=== PATIENT | female | born 1990 | race Asian ===

== ENCOUNTER 2023-09-19 01:47 | Inpatient (IN) ==
[2023-09-19] MEDS: LACTATED RINGER'S 1,000 ML IV PRN (02:30)
[2023-09-19] MEDS ORDERED: OXYTOCIN 30 UNITS/NSS 30 UNITS/500 ML BAG IV PRN (02:52)
[2023-09-19] MEDS ORDERED: LIDOCAINE 1% LOCAL 20 ML VIAL INFIL PRN (02:52)
[2023-09-19] MEDS ORDERED: CALCIUM CARBONATE 500 MG CHEWABLE TAB PO PRN (02:52)
--- NOTE | 2023-09-19 02:54 | Communication Note ---
Date of Service: September 19, 2023 H and P written as Vidly was down at the time. G1 at 38 weeks, srom, mec. 5/100/-2 toco--q2-3 fetus category one a/p admit for labor, epidural,
[2023-09-19 03:04] LABS: Basophils # (auto) 0.03 K/uL (0.00-0.20); Basophils % (auto) 0.3 %; Eosinophils # (auto) 0.05 K/uL (0.00-0.50); Eosinophils % (auto) 0.4 %; Hematocrit (blood only) 37.3 % (37.0-47.0); Hemoglobin 12.4 g/dl (12.0-16.0); Immature Granulocytes # (auto) 0.08 K/uL (0.01-0.20); Immature Granulocytes % (auto) 0.7 %; Lymphocytes # (auto) 2.09 K/uL (1.20-3.40); Lymphocytes % (auto) 17.8 %; Mean Corpuscular Hemoglobin 28.1 pg (25.0-34.0); Mean Corpuscular Hgb Conc 33.2 g/dL (32.0-36.0); Mean Corpuscular Volume 84.4 fL (80.0-100.0); Mean Platelet Volume 10.1 fL (9.4-12.4); Monocytes # (auto) 0.77 K/uL (0.11-0.59); Monocytes % (auto) 6.6 %; Neutrophils % (auto) 74.2 %; Platelet Count 228 K/uL (130-400); RDW Coefficient of Variation 14.8 % (11.5-14.5); RDW Standard Deviation 45.5 fL (36.4-46.3); Red Blood Count 4.42 M/uL (4.20-5.40); White Blood Count 11.72 K/ul (4.8-10.8)
[2023-09-19] MEDS ORDERED: LIDOCAINE 2% MPF LOCAL 5 ML VIAL EPI PRN (03:25)
[2023-09-19] MEDS ORDERED: ONDANSETRON INJ 2 MG/ML 2 ML VIAL IV PRN (03:25)
[2023-09-19] MEDS ORDERED: ROPIVACAINE 0.5% PF 5 MG/ML 20 ML VIAL EPI PRN (03:25)
[2023-09-19] MEDS ORDERED: diphenhydrAMINE 50 MG/ML VIAL IV PRN (03:25)
[2023-09-19] MEDS ORDERED: NALOXONE HCL 1 MG in SODIUM CHLORIDE 0.9% 1,000 ML IV PRN (03:25)
[2023-09-19] MEDS ORDERED: SODIUM CHLORIDE 0.9% PF INJ 10 ML VIAL EPI PRN (03:25)
[2023-09-19] MEDS ORDERED: NALBUPHINE HCL 5 MG in SYRINGE 0 ML IV PRN (03:25)
[2023-09-19] MEDS ORDERED: fentANYL 2 MCG/ML BUPIVacaine 0.125%-NSS 100ML BAG EPI PRN (03:25)
[2023-09-19] MEDS ORDERED: fentaNYL citrate PF 100 MCG/2 ML VIAL EPI PRN (03:25)
[2023-09-19] MEDS ORDERED: BUPIVACAINE 0.25% PF 30 ML VIAL EPI PRN (03:25)
[2023-09-19] MEDS ORDERED: NALOXONE HCL 0.4 MG/1 ML VIAL/CARP IV PRN (03:25)
[2023-09-19] MEDS ORDERED: ePHEDrine sulfate 50 MG/ML AMP IV PRN (03:25)
--- NOTE | 2023-09-19 03:25 | Anesthesiology Consultation ---
Date of Service September 19, 2023 Assessment & Plan ASA ASA2 Proposed Anesthesia Anesthesia Type: General Risk / Benefits Reviewed With: PT / POA / Parent / Guardian, Accepts Plan and Informed Consent Obtained History Height/Weight Height: 5 ft 2 in Weight: 77.564 kg Allergies Allergy/AdvReac Type Severity Reaction Status Date / Time No Known Allergies Allergy Verified 09/18/23 15:19 Medications Home Medications Medication Instructions Recorded Confirmed Last Taken ferrous sulfate 325 mg (65 mg 325 mg PO DAILY 08/21/23 09/18/23 09/19/23 00:00 iron) tablet (Iron (ferrous sulfate)) vits no.124-ferrous fum 1 tab PO DAILY 08/21/23 09/18/23 09/19/23 00:00 27 mg iron-folic acid 800 mcg tablet ( Vitamin) Active Medications Generic Name Dose Route Start Last Admin Trade Name Freq PRN Reason Stop Dose Admin Lactated Ringer's 1,000 mls @ 125 mls/hr 09/19/23 02:52 09/19/23 03:30 Lr IV 09/21/23 02:51 125 mls/hr .Q8H PRN Infusion L&D Protocol Protocol Exercise / Class Metabolic Activity II 4-5 Yardwork/Stairs/Walk up hill Past Family History Family History Mother Hypertension Diabetes Past Anesthesia History No Hx of Anesthesia Complications and No Family Hx of Anesthesia Complications History of PONV No Hx of PONV and No Hx of Motion Sickness Social History Smoking Status: Never smoker Do You Dip or Chew Tobacco: No Hx Alcohol Use: No Hx Substance Use: No substance use type: does not use Review of Systems denies fever/cough/ colds/ chest pain/ SOB/ JOSE denies JOSE Physical Exam Vital Signs Last Vital Signs Temp 36.8 C 09/19/23 02:04 Pulse 108 H 09/19/23 03:54 Resp 18 09/19/23 02:04 BP 117/68 09/19/23 03:53 Pulse Ox 100 09/19/23 03:54 ENMT Mouth: no TMJ abnormality and no dentition abnormality Thyromental Distance: > or= 3.5 Finger Breadths Mallampati Class: II Neck neck extension not limited Respiratory normal respiratory effort; no respiratory distress Auscultation: lungs clear to auscultation bilaterally Cardiovascular Rate/Rhythm: regular rate and regular rhythm Neurologic moves all extremities Psychiatric Orientation: alert and oriented x 3 Testing Laboratory Results 09/19/23 02:45
[2023-09-19] MEDS: fentaNYL citrate PF 100 MCG/2 ML VIAL ONE (03:51)
[2023-09-19] MEDS: fentANYL 2 MCG/ML BUPIVacaine 0.125%-NSS 100ML BAG ONE (03:51)
[2023-09-19] MEDS: BUPIVACAINE 0.25% PF 30 ML VIAL ONE (03:52)
[2023-09-19] MEDS: LIDOCAINE 2%/EPINEPHRINE 1:200,000 20 ML PF ONE (03:52)
[2023-09-19] MEDS: SODIUM CHLORIDE 0.9% PF INJ 10 ML VIAL ONE (04:04)
[2023-09-19] MEDS: ePHEDrine sulfate 50 MG/ML AMP ONE (04:04)
[2023-09-19] MEDS: BUPIVACAINE 0.25% PF 30 ML VIAL EPI STA (04:04)
[2023-09-19] MEDS: SODIUM CHLORIDE 0.9% PF INJ 10 ML VIAL EPI STA (04:05)
[2023-09-19] MEDS: fentaNYL citrate PF 100 MCG/2 ML VIAL EPI STA (04:05)
[2023-09-19] MEDS: LIDOCAINE 2%/EPINEPHRINE 1:200,000 20 ML PF EPI STA (04:05)
--- NOTE | 2023-09-19 04:29 | Labor Progress Brief Note ---
Date of Service September 19, 2023 Subjective comfortable with epidural Assessment & Plan (1) Normal labor: Plan spontaneously laboring. fetus overall category one--decel happened after epidural placed. mec fluid. anticipate . Admission and Anticipated Discharge Date Admission Date: September 19, 2023 Physical Exam Physical Exam: cx--6-7/100/-2 toco--q2-3min efm--140s with mod variability, accels present, +scalp stim, did have a decel to 70s that resolved with position change. Results & Data Vital Signs (Past 12 Hours) Vital Signs Temp Pulse Resp BP Pulse Ox 09/19/23 04:26 93 H 107/55 L 09/19/23 04:24 85 99 09/19/23 04:19 94 H 98 09/19/23 04:16 122 H 112/59 L 09/19/23 04:14 108 H 99 09/19/23 04:09 106 H 99 09/19/23 04:05 100 H 110/58 L 09/19/23 04:04 37.0 C 104 H 18 99 09/19/23 04:03 206 H 113/61 09/19/23 04:01 96 H 111/61 09/19/23 03:59 117 H 110/63 100 09/19/23 03:57 111 H 114/70 09/19/23 03:55 104 H 109/62 09/19/23 03:54 108 H 100 09/19/23 03:53 102 H 117/68 09/19/23 03:51 103 H 112/69 09/19/23 03:49 107 H 127/78 100 09/19/23 03:47 92 H 128/74 09/19/23 03:45 94 H 126/70 09/19/23 03:44 94 H 98 09/19/23 03:39 91 H 100 09/19/23 03:34 94 H 100 09/19/23 03:29 100 09/19/23 03:29 92 H 09/19/23 03:29 97 H 135/80 09/19/23 03:24 99 H 100 09/19/23 03:19 101 H 100 09/19/23 03:14 90 100 09/19/23 03:09 93 H 100 09/19/23 03:04 97 H 100 09/19/23 02:59 93 H 100 09/19/23 02:54 87 100 09/19/23 02:09 82 128/77 09/19/23 02:04 18 09/19/23 02:04 36.8 C 18 Coding Level of Care Code None Diagnoses Normal labor O80; Z37.9
--- NOTE | 2023-09-19 05:23 | Obstetrical Progress Note ---
Date of Service September 19, 2023 Assessment & Plan (1) Normal labor: Plan continue current expectant management. decel likely to tachysystole. reassuring now. continue to monitor closely. Admission and Anticipated Discharge Date Admission Date: September 19, 2023 Subjective comfortable. walked in when patient having a decel Physical Exam Physical Exam: cx--8/100/-1 toco--q3-5, decel during a prolonged contraction or 2-3 on top of one another efm--decel to 70s responding to position change, now 150s, had been having mod variability and accels, +scalp stim Results & Data Vital Signs (Past 12 Hours) Vital Signs Temp Pulse Resp BP Pulse Ox 09/19/23 05:19 105 H 100 09/19/23 05:16 109 H 118/71 09/19/23 05:14 103 H 100 09/19/23 05:09 109 H 99 09/19/23 05:07 98 H 120/63 09/19/23 05:04 97 H 98 09/19/23 04:59 100 H 99 09/19/23 04:56 108 H 111/62 09/19/23 04:54 113 H 99 09/19/23 04:49 102 H 99 09/19/23 04:47 111 H 116/60 09/19/23 04:44 104 H 99 09/19/23 04:39 100 H 99 09/19/23 04:36 103 H 109/64 09/19/23 04:34 95 H 99 09/19/23 04:29 110 H 99 09/19/23 04:26 93 H 107/55 L 09/19/23 04:24 85 99 09/19/23 04:19 94 H 98 09/19/23 04:16 122 H 112/59 L 09/19/23 04:14 108 H 99 09/19/23 04:09 106 H 99 09/19/23 04:05 100 H 110/58 L 09/19/23 04:04 37.0 C 104 H 18 99 09/19/23 04:03 206 H 113/61 09/19/23 04:01 96 H 111/61 09/19/23 03:59 117 H 110/63 100 09/19/23 03:57 111 H 114/70 09/19/23 03:55 104 H 109/62 09/19/23 03:54 108 H 100 09/19/23 03:53 102 H 117/68 09/19/23 03:51 103 H 112/69 09/19/23 03:49 107 H 127/78 100 09/19/23 03:47 92 H 128/74 09/19/23 03:45 94 H 126/70 09/19/23 03:44 94 H 98 09/19/23 03:39 91 H 100 09/19/23 03:34 94 H 100 09/19/23 03:29 100 09/19/23 03:29 92 H 09/19/23 03:29 97 H 135/80 09/19/23 03:24 99 H 100 09/19/23 03:19 101 H 100 09/19/23 03:14 90 100 09/19/23 03:09 93 H 100 09/19/23 03:04 97 H 100 09/19/23 02:59 93 H 100 09/19/23 02:54 87 100 09/19/23 02:09 82 128/77 09/19/23 02:04 18 09/19/23 02:04 36.8 C 18 PG Care Time/CCT Total # of Minutes Spent Total Time Spent with Patient: Total time spent is greater than 50% in coordination of care (as documented) at patient's floor/unit and/or counseling patient: Coding Level of Care Code None Diagnoses Normal labor O80; Z37.9
--- NOTE | 2023-09-19 07:14 | Labor Progress Brief Note ---
Date of Service September 19, 2023 Subjective fairly comfortable Assessment & Plan (1) Normal labor: (2) Meconium in amniotic fluid: Plan Will start second stage and see how the baby tolerates. If tolerates pushing and effective, anticipate vaginal delivery . If baby does not tolerate, will need to move to c/s. Will continue to monitor closely. Admission and Anticipated Discharge Date Admission Date: September 19, 2023 Physical Exam Physical Exam: cx--c/c/0-+1 toco--q2-4min, some tripling efm--150s with mod variability, +scalp stim. spon decels if has 2-3 or more contractions right on top of one another. Resolves to baseline once contractions space and looks reassuring. Results & Data Vital Signs (Past 12 Hours) Vital Signs Temp Pulse Resp BP Pulse Ox 09/19/23 07:09 116 H 100 09/19/23 07:08 106 H 130/79 09/19/23 07:04 125 H 100 09/19/23 07:01 20 09/19/23 07:01 36.9 C 20 09/19/23 06:59 105 H 100 09/19/23 06:56 107 H 115/70 09/19/23 06:54 108 H 98 09/19/23 06:49 106 H 100 09/19/23 06:47 106 H 120/72 09/19/23 06:44 105 H 100 09/19/23 06:39 110 H 99 09/19/23 06:36 101 H 112/68 09/19/23 06:34 106 H 100 09/19/23 06:29 97 H 100 09/19/23 06:26 102 H 107/66 09/19/23 06:24 107 H 100 09/19/23 06:19 111 H 100 09/19/23 06:16 109 H 116/67 09/19/23 06:14 132 H 99 09/19/23 06:09 94 H 99 09/19/23 06:06 100 H 130/74 09/19/23 06:04 101 H 99 09/19/23 05:59 93 H 99 09/19/23 05:56 96 H 128/75 09/19/23 05:54 96 H 100 09/19/23 05:50 20 09/19/23 05:50 36.9 C 20 09/19/23 05:49 96 H 99 09/19/23 05:44 112 H 99 09/19/23 05:39 94 H 99 09/19/23 05:36 105 H 129/66 09/19/23 05:35 18 09/19/23 05:35 18 09/19/23 05:34 96 H 99 09/19/23 05:29 99 H 99 09/19/23 05:24 117 H 100 09/19/23 05:19 105 H 100 09/19/23 05:16 109 H 18 118/71 09/19/23 05:14 103 H 100 09/19/23 05:09 109 H 99 09/19/23 05:07 98 H 120/63 09/19/23 05:04 97 H 98 09/19/23 04:59 100 H 99 09/19/23 04:56 108 H 20 111/62 09/19/23 04:54 113 H 99 09/19/23 04:49 102 H 99 09/19/23 04:47 111 H 116/60 09/19/23 04:44 104 H 99 09/19/23 04:39 100 H 99 09/19/23 04:36 103 H 109/64 09/19/23 04:35 16 09/19/23 04:35 16 09/19/23 04:34 95 H 99 09/19/23 04:29 110 H 99 09/19/23 04:26 93 H 107/55 L 09/19/23 04:24 85 99 09/19/23 04:19 94 H 98 09/19/23 04:16 122 H 112/59 L 09/19/23 04:14 108 H 99 09/19/23 04:09 106 H 99 09/19/23 04:07 18 09/19/23 04:07 18 09/19/23 04:05 100 H 110/58 L 09/19/23 04:04 37.0 C 104 H 18 99 09/19/23 04:03 206 H 113/61 09/19/23 04:01 96 H 111/61 09/19/23 03:59 117 H 110/63 100 09/19/23 03:57 111 H 114/70 09/19/23 03:55 104 H 109/62 09/19/23 03:54 108 H 100 09/19/23 03:53 102 H 117/68 09/19/23 03:51 103 H 112/69 09/19/23 03:49 107 H 127/78 100 09/19/23 03:47 92 H 128/74 09/19/23 03:45 94 H 126/70 09/19/23 03:44 94 H 98 09/19/23 03:39 91 H 100 09/19/23 03:34 94 H 100 09/19/23 03:29 100 09/19/23 03:29 92 H 09/19/23 03:29 97 H 135/80 09/19/23 03:24 99 H 100 09/19/23 03:19 101 H 100 09/19/23 03:14 90 100 09/19/23 03:09 93 H 100 09/19/23 03:04 97 H 100 09/19/23 02:59 93 H 100 09/19/23 02:54 87 100 09/19/23 02:09 82 128/77 09/19/23 02:04 18 09/19/23 02:04 36.8 C 18 Coding Level of Care Code None Diagnoses Normal labor O80; Z37.9 Meconium in amniotic fluid P96.83
[2023-09-19] MEDS: OXYTOCIN 30 UNITS/NSS 30 UNITS/500 ML BAG IV PRN (08:00)
[2023-09-19] MEDS: METHYLERGONOVINE MALEATE 0.2 MG/ML AMP IM ONE (08:05)
--- NOTE | 2023-09-19 08:49 | Delivery Summary ---
Supervising Physician Co-Signing Physician Notes Pre-operative Diagnosis: at 38 1/7 srom--meconium labor Post-operative Diagnosis: same Procedure: epidural repair of second degree, left sulcal and bilateral labial lacerations QBL: 422cc Anesthesia: epidural Procedure: The patient presented to labor and delivery grossly ruptured with thin mec and in labor. She underwent an epidural. she progressed spontaneously. The patient pushed for a little over 30 minutes to deliver a viable male infant in paul position. The nose and mouth were bulb suctioned on the perineum and the rest of the infant was then delivered without difficulty. The baby was delivered though a loose nuchal cord. The baby was vigorous. The nose and mouth were again bulb suctioned and the was placed in the maternal abdomen for drying and attention. Cord was clamped and cut at one minute of life. Cord blood and segment obtained. Placenta delivered spontaneous, intact with a three vessel cord. Cervix/sulci/rectum were intact. A second degree perineal laceration, bilateral labial lacerations and a button hole left sulcal laceration were repaired in the normal standard fashion. There was alot of oozing from all of these areas in general but hemostasis finally achieved. Hemostasis obtained with dilute pitocin and fundal massage, methergine. Apgars were pending. Mother and baby doing well at the end of the delivery. Vaginal Delivery Summary Date of Service September 19, 2023 Vaginal Delivery Summary and 2nd Degree LAC (wtih bilateral labial and left sulcal) MNP Vaginal Delivery Charge Delivery Type Details: and 2nd Degree LAC (wtih bilateral labial and left sulcal)
[2023-09-19] MEDS ORDERED: bisacodyL 10 MG SUPP PR PRN (08:50)
[2023-09-19] MEDS ORDERED: HYDROCORTISONE ACETATE 25 MG SUPP PR PRN (08:50)
[2023-09-19] MEDS ORDERED: DIPHTHER/TETAN/PERTUS Vaccine (Tdap, Adol/Adult) 0.5mL IM ONE (08:50)
[2023-09-19] MEDS ORDERED: oxyCODONE/ACETAMINOPHEN 5mg/325mg TAB PO PRN (08:50)
--- NOTE | 2023-09-19 09:08 | Anesthesia Procedure Note ---
Date of Service September 19, 2023 Anesthesia Post Epidural Note Vital Signs Vital Signs: Temp Pulse Resp BP Pulse Ox 36.9 C 96 H 20 117/71 100 09/19/23 07:01 09/19/23 09:05 09/19/23 08:50 09/19/23 09:05 09/19/23 08:24 Pain Intensity Abdomen: Pain Intensity: 0 Notes Mental Status: alert / awake / arousable and participated in evaluation Patient Amnestic to Procedure: No Nausea / Vomiting: adequately controlled Pain: adequately controlled Airway Patency, RR, SpO2: stable & adequate BP & HR: stable & adequate Hydration State: stable & adequate Neuraxial Anesthesia: was administered and sensory block is resolving Anesthetic Complications: no major complications apparent and Pt Satisfied with anesthetic care Epidural: Removed without complications and With tip intact
[2023-09-19] MEDS: BENZOCAINE 20% SPRY 85 APPLN/85 GM CAN EXT PRN (10:18)
[2023-09-19] MEDS: IBUPROFEN 600 MG TAB PO PRN (10:18)
[2023-09-19 13:59] VITALS: O2SAT 98
[2023-09-19] MEDS: DOCUSATE SODIUM 100 MG CAP PO SCH (21:56)
[2023-09-19] MEDS: ACETAMINOPHEN 325 MG TAB PO PRN (22:03)
[2023-09-20 06:42] LABS: Hemoglobin 9.5 g/dl (12.0-16.0)
--- NOTE | 2023-09-20 07:17 | Obstetrical Progress Note ---
Date of Service <Haroon Fitch MD - Last Filed: 09/20/23 08:11> September 20, 2023 Assessment & Plan <Haroon Fitch MD - Last Filed: 09/20/23 08:11> (1) Encounter for assessment: visit type: exam and care immediately after delivery Qualified Code(s): Z39.0 - Encounter for care and examination of mother immediately after delivery Plan PPD 1: stable, routine management -Patient is voiding and ambulating on their own power -Pain is well controlled on as needed analgesia -Tolerating regular diet without nausea or vomiting -Planned to Breast feed * Patient is Rubella non-immune due for booster MMR. * Reassess d/c readiness tomorrow * 6 weeks OB outpatient follow-up <Tuyet Malhotra MD, FACOG - Last Filed: 09/20/23 08:54> (1) Encounter for assessment: Subjective <Haroon Fitch MD - Last Filed: 09/20/23 08:11> Ambulation: ambulating normally Voiding: no voiding problems Diet Tolerance:: regular diet Lochia:: Moderate Feeding Type:: breast feeding Pt is a 32 y/o female who is now PPD#1 following with second degree lac at 38 weeks. Reports feeling well overall this morning. mild abdominal cramping and 4-6/10 pain, well managed on analgesics. Voiding normal and some mild burning sensation. Tolerating meals and able to ambulate some. passing gas but no bowel movements. Some persistent lochia with overall improvement as of this morning. Breast feeding. Review of Systems -Denies fever or chills -Denies dyspnea, chest pain, or palpitations -Denies breast pain -Denies dysuria -Denies headache or changes in vision Physical Exam <Haroon Fitch MD - Last Filed: 09/20/23 08:11> General: Alert and oriented. No acute distress Cardiac: Regular rate and rhythm, no murmurs appreciated Respiratory: Lungs clear to auscultation bilaterally, No increased work of breathing Abdominal: Soft, non-tender, non-distended. Bowel sounds present. Uterus: Uterine fundus firm, palpable below umbilicus Extremities: minimal lower extremity edema, calves non-tender bilaterally Results & Data <Haroon Fitch MD - Last Filed: 09/20/23 08:11> Vital Signs (Past 12 Hours) Vital Signs Temp Pulse Resp BP Pulse Ox O2 Del Method 09/20/23 03:30 36.5 C 98 H 18 117/79 98 Room Air 09/19/23 23:50 36.6 C 96 H 18 109/69 98 Room Air 09/19/23 21:30 36.5 C 104 H 18 113/77 98 Room Air Supervising Physician <Tuyet Malhotra MD, FACOG - Last Filed: 09/20/23 08:54> Co-Signing Physician Notes Resident Physician Supervision Note: I was present with Dr. Marcela Fitch during the history and exam. I discussed the case with the resident and agree with the findings and plan as documented in the note. Any exceptions or clarifications are listed here: Pt doing well. eating, voiding, ambulating. . abd soft ff 2 down nt, nt calves. ppd#1 s/p . will cont current care. Documented By: Tuyet Malhotra MD, FACOG Resident Activity Tracking <Haroon Fitch MD - Last Filed: 09/20/23 08:11> Resident Involvement: Resident Care Provided Care Provided: OB Delivery
[2023-09-20] MEDS: PRENATAL VITAMIN 1 TAB PO SCH (08:37)
[2023-09-20 17:36] VITALS: RESP 18
[2023-09-20] MEDS: bisacodyL 5 MG TABEC PO SCH (20:35)
--- NOTE | 2023-09-21 07:26 | Obstetrical Progress Note ---
Date of Service <Haroon Fitch MD - Last Filed: 09/21/23 07:31> September 21, 2023 Assessment & Plan <Haroon Fitch MD - Last Filed: 09/21/23 07:31> (1) Encounter for assessment: visit type: exam and care immediately after delivery Qualified Code(s): Z39.0 - Encounter for care and examination of mother immediately after delivery Plan PPD 2: stable, routine management -Patient is voiding and ambulating on their own power -Pain is well controlled on as needed analgesia -Tolerating regular diet without nausea or vomiting -Planned to Breast feed * Patient is Rubella non-immune and she is advised to make an appointmemnt with her PCP to get booster MMR after d/c. * d/c home today * 6 weeks OB outpatient follow-up <Misty Villatoro MD - Last Filed: 09/21/23 07:59> (1) Encounter for assessment: Subjective <Haroon Fitch MD - Last Filed: 09/21/23 07:31> Ambulation: ambulating normally Voiding: no voiding problems Diet Tolerance:: regular diet Lochia:: Moderate Feeding Type:: breast feeding Pt is a 32 y/o female who is now PPD#2 following with second degree lac at 38 weeks. Reports feeling well overall this morning. mild abdominal cramping and 4-5/10 pain, well managed on analgesics. Voiding normal and some mild burning sensation. Tolerating meals and able to ambulate some. passing gas but no bowel movements. Some persistent lochia with overall improvement as of this morning. Breast feeding. Review of Systems -Denies fever or chills -Denies dyspnea, chest pain, or palpitations -Denies breast pain -Denies dysuria -Denies headache or changes in vision Physical Exam <Haroon Fitch MD - Last Filed: 09/21/23 07:31> General: Alert and oriented. No acute distress Cardiac: Regular rate and rhythm, no murmurs appreciated Respiratory: Lungs clear to auscultation bilaterally, No increased work of breathing Abdominal: Soft, non-tender, non-distended. Bowel sounds present. Uterus: Uterine fundus firm, palpable below umbilicus Extremities: minimal lower extremity edema, calves non-tender bilaterally Results & Data <Haroon Fitch MD - Last Filed: 09/21/23 07:31> Vital Signs (Past 12 Hours) Vital Signs Temp Pulse Resp BP BP Pulse Ox O2 Del Method 09/20/23 22:50 36.6 C 98 H 18 109/68 98 Room Air 09/20/23 21:08 36.9 C 86 18 124/79 99 Room Air Supervising Physician <Misty Villatoro MD - Last Filed: 09/21/23 07:59> Co-Signing Physician Notes Resident Physician Supervision Note: I interviewed and examined the patient. Discussed with Dr. Fitch and agree with findings and plan as documented in the note. Any exceptions or clarifications are listed here: Doing well, for dc home today. Unsure about mmr, may get it here. Aware we do not have it at our office if desires pp Documented By: Misty Villatoro MD Resident Activity Tracking <Haroon Fitch MD - Last Filed: 09/21/23 07:31> Resident Involvement: Resident Care Provided Care Provided: OB Delivery
[2023-09-21 07:43] VITALS: BP 124/78; TEMP 97.5
[2023-09-21 09:36] VITALS: PULSE 98
== END 2023-09-21 12:38 | disposition home or self-care (01) | DRG 807 ==
LOC: OPB 01:47 → 4S1 01:51 → 4E2 11:45
DX: Z3A.38 38 weeks gestation of pregnancy; O42.02 Full-term premature rupture of membranes, onset of labor within 24 hours of rupture; O76 Abnormality in fetal heart rate and rhythm complicating labor and delivery; Z37.0 Single live birth; O70.1 Second degree perineal laceration during delivery; O69.81X0 Labor and delivery complicated by cord around neck, without compression, not applicable or unspecified; O77.0 Labor and delivery complicated by meconium in amniotic fluid